=== PATIENT | female | born 1940 | race Caucasian/White ===

== ENCOUNTER 2021-03-11 07:13 | Outpatient (CLI) | payer OTHER | END 2021-03-11 07:30 | disposition home or self-care (01) | LOC: SONOGRAMA 07:13 → MAMO-SONO 08:15 | PROVIDERS: ATTEND Internal Medicine Gastroenterology | DX: R10.10 Upper abdominal pain, unspecified (principal); E04.2 Nontoxic multinodular goiter; E03.8 Other specified hypothyroidism ==